=== PATIENT | female | born 1990 | race African-American/Black ===

== ENCOUNTER 2016-08-05 18:03 | Emergency (ER) | payer OTHER ==
--- NOTE | ~2016-08-05 | EKG ---
PATIENT: LULU OSUNA UNIT #: [id number] Ventricular Rate: 67 BPM Atrial Rate: 67 BPM P-R Interval: 198 ms QRS Duration: 88 ms Q-T Interval: 378 ms QTC Calculation(Bezet): 399 ms P Pilot: 43 degrees Calculated R Pilot: 25 degrees Calculated T Pilot: 9 degrees Diagnosis Line: Normal sinus rhythm with sinus arrhythmia Diagnosis Line: Normal ECG Diagnosis Line: No previous ECGs available Diagnosis Line: Confirmed by JULISA PUENTES MD ([id number]) on 08/07/2016 Diagnosis Line: 10:30:58 AM INTERPRETING MD: DELORIS NETTLES
--- NOTE | ~2016-08-05 | CR72 ---
[facility] A Service of [facility] RADIOLOGY TEXT RESULTS PATIENT: LULU OSUNA LOCATION: [facility] : 88 UNIT #: [id number] AGE: [address]: Norman Lara DO SEX: F ORDER DR: [id number] [facility] [address] [place], [place] [address] [id number] MR#: [id number] Acc #: [id number] NAME: LULU OSUNA : 1990 SEX: F STUDY DATE/TIME: 08/05/2016 20:23 UNIT: [facility] ROOM: STUDY DESCRIPTION: CR Chest Single View Portable Attending Physician: Norman Lara D.O. Ordering Physician: Norman Lara D.O. MEDICAL IMAGING REPORT This report is preliminary unless electronic signature is present EXAM Chest x-ray single-view portable HISTORY Chest pain starting a month ago, smoker. TECHNIQUE Single frontal portable view chest timed 20:23 08/05/2016 reviewed. COMPARISON STUDIES No previous. FINDINGS Heart size is normal. No acute-appearing parenchymal infiltrate, acute congestive failure or pleural effusion. No pneumothorax. IMPRESSION No active disease. Dictated by... Pam Hilton M.D. THIS IS AN ELECTRONICALLY VERIFIED REPORT Pam Hilton M.D. at 08/05/2016 9:33 PM SAC/pcl TD: 08/05/2016 21:28 JOB #: [id number] MEDICAL IMAGING REPORT Page 1 of 1 COPY
[2016-08-05 20:01] LABS: BASOPHIL# 0.1 X10e3 (0-0.3); BASOPHIL% 0.8 % (0-2.5); EOSINOPHIL# 0.2 X10e3 (0-0.7); EOSINOPHIL% 2.5 % (0.0-7.0); HEMATOCRIT 38.6 % (35.0-45.0); HEMOGLOBIN 12.3 gm/dL (12.0-16.0); LYMPHOCYTE# 2.6 X10e3 (1.0-3.5); LYMPHOCYTE% 42.7 % (17.0-45.0); MEAN CELL VOLUME 84.1 FL (83-96); MEAN CORPUSCULAR HEMOGLOBIN 26.7 PG (28-34); MEAN CORPUSCULAR HGB CONC 31.7 g/dL (30-36); MEAN PLATELET VOLUME 9.1 FL (6.5-11.5); MONOCYTE# 0.6 X10e3 (0-1.0); MONOCYTE% 10.3 % (3.0-12.0); NEUTROPHIL# 2.7 X10e3 (1.5-7.1); NEUTROPHIL% 43.7 % (40-75); PLATELET COUNT 292 X10e3 (140-420); RED BLOOD COUNT 4.59 X10e (3.90-5.30); RED CELL DISTRIBUTION WIDTH 14.3 % (11.0-15.5); WHITE BLOOD COUNT 6.2 X10e3 (4.0-10.5)
[2016-08-05 20:02] LABS: DIFF IND NO
[2016-08-05 20:09] LABS: PARTIAL THROMBOPLASTIN TIME 24.9 SECONDS (23.5-31.3)
[2016-08-05 20:15] LABS: POC - CKMB 1.2 ng/mL (0.0-7.9); POC - TROPONIN <0.05 ng/mL (<=0.05)
[2016-08-05 20:18] LABS: ALBUMIN SERUM 4.1 g/dL (3.5-5.0); BILIRUBIN, DIRECT 0.2 mg/dL (0.0-0.2); BILIRUBIN,INDIRECT 0.3 mg/dL (0.0-0.9); BILIRUBIN,TOTAL 0.5 mg/dL (0.2-2.0); BUN/CREATININE RATIO 12.5; CALCIUM SERUM 8.7 mg/dL (8.4-10.2); CREATININE SERUM 0.8 mg/dL (0.6-1.4); GLOM FILT RATE Estimated 117.2 mL/min (>60); POTASSIUM 3.8 mmol/L (3.5-5.1); PROTEIN TOTAL SERUM 7.3 g/dL (6.0-8.3)
[2016-08-05 21:46] LABS: POC - CKMB 1.1 ng/mL (0.0-7.9); POC - TROPONIN <0.05 ng/mL (<=0.05)
== END 2016-08-05 21:49 | disposition home or self-care (01) ==
LOC: CED 18:03
PROVIDERS: Emergency Medicine
DX: R07.9 Chest pain, unspecified (principal); R14.2 Eructation; F17.200 Nicotine dependence, unspecified, uncomplicated
CPT/HCPCS: 36415; 71010; 80048; 80076; 82553; 84484; 85025; 85610; 85730; 93005; 99284